=== PATIENT | male | born 1945 | race Caucasian/White ===

== ENCOUNTER → 2024-03-13 06:39 | Outpatient (REF) | payer MEDICARE, OTHER, SELFPAY ==
[2024-03-13 08:35] LABS: ALT (SGPT) 11 U/L (0-50); AST (SGOT) 19 U/L (17-59); Albumin 4.4 g/dl (3.5-5.0); Alkaline Phosphatase 66 U/L (38-126); Blood Urea Nitrogen 18 mg/dl (9-20); Calcium 9.7 mg/dl (8.4-10.2); Carbon Dioxide 31 mmol/L (22-30); Chloride 103 mmol/L (98-107); Glucose 95 mg/dl (70-99); HDL Cholesterol 79 mg/dl; LDL Cholesterol, Calculated 77 mg/dl; Potassium 4.4 mmol/L (3.5-5.1); Sodium 140 mmol/L (135-145); Total Bilirubin 0.4 mg/dl (0.2-1.3); Total Cholesterol 177 mg/dl (50-199); Total Protein 7.5 g/dl (6.3-8.2); Triglyceride 107 mg/dl (10-149); Very Low Density Lipoprotein 21 mg/dl (0-30); eGFR > 60.00
== END ==
LOC: REG 06:39
PROVIDERS: ATTENDING PHYSICIAN Internal Medicine Cardiovascular Disease; FAMILY PHYSICIAN Physical Medicine & Rehabilitation
DX: E78.2 Mixed hyperlipidemia (principal)
CPT/HCPCS: 36415; 80053; 80061

== ENCOUNTER 2024-10-02 06:35 | Inpatient (IN) | payer MEDICARE, OTHER, SELFPAY ==
--- NOTE | 2024-09-15 13:36 | CM ---
CM reviewed medical records. CM reviewed medical records. CM spoke with patient via phone. Patient confirmed demographics. Patient lives independently alone in a second floor apartment with elevator access. Patient stated that he does not have
family close by, but would rely on his neighbors to drive him back and forth. CM advised that patient can take an uber TO the procedure, but he would have to make arrangements to have someone pick him up from surgery. Patient understood and stated
that he would make arrangements for that.
Patient asked about SNF. Cm advised that SNF is rarely advisable if PT cleared him for home. Patient stated he understood, but would be agreeable to home PT due to inability to drive and have no support. CM encouraged patient to make arrangements
for outpatient PT once cleared for driving.
Patient is active with his PCP. Patient has medication coverage.
CM discussed required DME and referred patient to his education packet from [facility]. CM counseled patient to review required DME and encouraged questions.
CM will remain available.
[2024-09-27 13:29] VITALS: BMI 29.8
[2024-09-27 13:36] LABS: Hematocrit 38.1 % (39.0-52.0); Hemoglobin 11.9 g/dL (13.0-18.0); Mean Corp Hgb Conc. 31.2 g/dL (33.0-37.0); Mean Corpuscular Volume 86.6 fL (80.0-94.0); Platelet Count 219 10^3/uL (130-400); Red Cell Dist. Width 13.1 % (11.5-14.5)
[2024-09-27 13:59] LABS: ALT (SGPT) 13 U/L (0-50); AST (SGOT) 21 U/L (17-59); Albumin 4.4 g/dl (3.5-5.0); Alkaline Phosphatase 69 U/L (38-126); Blood Urea Nitrogen 15 mg/dl (9-20); Calcium 9.4 mg/dl (8.4-10.2); Carbon Dioxide 24 mmol/L (22-30); Chloride 107 mmol/L (98-107); Estimated Creatinine Clearance 76 ml/min; Glucose 90 mg/dl (70-99); Potassium 4.4 mmol/L (3.5-5.1); Sodium 139 mmol/L (135-145); Total Protein 7.3 g/dl (6.3-8.2); eGFR > 60.00
[2024-09-27 14:21] VITALS: BMI 29.8
[2024-09-28 09:20] LABS: Iron 62 ug/dl (49-181)
[2024-09-28 09:29] LABS: Total Iron Binding Capacity 320 ug/dl (261-462)
[2024-09-28 10:34] LABS: Glycohemoglobin (HgbA1c) 5.5 % (4.0-5.6)
[2024-09-28 12:25] LABS: Ferritin 24.6 ng/ml (17.9-464.0)
[2024-09-28 12:56] LABS: Folate 13.3 ng/ml (2.76-20)
[2024-09-28 13:55] LABS: Vitamin B12 824 pg/ml (239-931)
[2024-10-02] VITALS (16 sets, daily range): BP systolic 97–158; BP diastolic 56–84; PULSE 67–72; O2SAT 97
[2024-10-02] MEDS: BACTROBAN NASAL 1 GRAM NASAL (07:20)
[2024-10-02] MEDS: MOBIC 15 MG PO (07:22)
[2024-10-02] MEDS: NORMOSOL-R/PLASMALYTE-A 1000 IV ×2 (07:27→12:00)
[2024-10-02] MEDS: BENADRYL 25 MG IV ×2 (07:30→17:49)
[2024-10-02] MEDS: VANCOCIN 530 MG IV (07:32)
--- NOTE | 2024-10-02 07:58 | W.PN.ORTHO ---
Today's Communication / Plan
-
d/c when stable
Assessment
.
Dressing:
Clean, dry and intact.
Assessment:
hx p/o respiratory cwaklta-xtyxkwv-sraxypf sats on supplemental O2-IV Decadron-incentive spirometry
Dysphagia-aspiration precautions-mechanical soft diet -avoid lung infiltrate
Anemia-mild low grade TUSHAR-IV iron to enhance blood cell production-monitor hgb
Pain control-[place] w/ multimodal pain approach-minimize opioid to avoid respiratory suppression
HFpEF-monitor volume status-decrease IV fluid rate
Orthostasis-Midodrine w/ rybfrgcsu-XIMd-wybecaqz opioid
MRSA-IV Vanco-Mupirocin bid x 21d
Plan
.
Surgery / Date: R ELEANOR Jacob 10/02/24
DVT Prophylaxis: Aspirin
Activity:
Out of bed.
PT/OT
Discharge Plan: Home w/ VN
Subjective
.
.:
.
Vital Signs and Labs
.
Vital Signs and Labs:
Lab Results
09/27/24 11:01
09/27/24 11:01
Temp Pulse Resp BP Pulse Ox
97.6 F 92 16 158/84 98
10/02/24 06:50 10/02/24 06:50 10/02/24 06:50 10/02/24 06:50 10/02/24 06:50
--- NOTE | 2024-10-02 08:42 | W.DS.TRANS ---
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
-
Discharge Instructions:
Sleep Apnea Risk Low
Discharge Diagnosis/Procedures R ELEANOR Dr. Hunt 10/02/24
Diet As tolerated,Chop all food
Activity With Walker
Driving Restrictions No driving
Bathing Restrictions OK to Shower
Other Services VN,PT,OT
Instructions:
Stand-Alone Forms: Total Hip/Knee Replacement D/C
Changes to Home Medications: Yes
Discharge Medications:
DC Medications w/original date entered in [employer]
Boswellia jake-turmeric xt 1 cap PO DAILY 09/26/24
Held on 10/02/24. Instructions: Resume on 10/10/24.
budesonide 160 mcg-glycopyr 9 mcg-formot 4.8 mcg/actuation HFA inhaler (Breztri Aerosphere) 2 inh inhalation QAM AND QPM 09/26/24
magnesium glycinate 2 - 4 tab PO HS 09/26/24
rosuvastatin 20 mg tablet 20 mg PO HS 09/26/24
Lions Chidi 1 cap PO DAILY 09/27/24
Held on 10/02/24. Instructions: Resume on 10/10/24.
Turmeric Curcumin 1 cap PO DAILY 09/27/24
Held on 10/02/24. Instructions: Resume on 10/10/24.
apple cider vinegar 1 gum PO BID 09/27/24
ashwagandha root extract 1 cap PO DAILY 09/27/24
Held on 10/02/24. Instructions: Resume on 10/10/24.
devil's claw 1 cap PO DAILY 09/27/24
Held on 10/02/24. Instructions: Resume on 10/10/24.
melatonin 12 mg tablet 12 mg PO HS 09/27/24
dexamethasone 4 mg tablet 4 mg PO BID Anti-inflammatory #5 tabs 09/28/24
famotidine 20 mg tablet (Pepcid) 20 mg PO HS #30 tabs 09/28/24
gabapentin 300 mg capsule 300 mg PO HS neuropathic pain/sleep #10 caps 09/28/24
hydrocodone 5 mg-acetaminophen 325 mg tablet 1 - 2 tab PO Q6H PRN moderate-severe pain #30 tabs 09/28/24
mupirocin 2 % topical ointment 1 applic intranasal BID #1 tube 09/28/24
ondansetron HCl 4 mg tablet 4 mg PO Q6H PRN nausea and vomiting #30 tabs 09/28/24
acetaminophen 325 mg tablet (Tylenol) 650 mg (2 x 325 mg) PO QID #0 tabs 10/02/24
aspirin 325 mg tablet 325 mg PO DAILY blood clot prevention #1 tab 10/02/24
docusate sodium 100 mg capsule (Colace) 100 mg PO BID stool softner #1 cap 10/02/24
magnesium hydroxide 400 mg/5 mL oral suspension (Milk of Magnesia) 30 ml PO HS PRN constipation #1 mL 10/02/24
sennosides 8.6 mg tablet (Senokot) 17.2 mg (2 x 8.6 mg) PO BID laxative #2 tabs 10/02/24
Home Medication Changes
dexamethasone 4 mg tablet 4 mg PO BID Anti-inflammatory #5 tabs 09/28/24
famotidine 20 mg tablet (Pepcid) 20 mg PO HS #30 tabs 09/28/24
gabapentin 300 mg capsule 300 mg PO HS neuropathic pain/sleep #10 caps 09/28/24
hydrocodone 5 mg-acetaminophen 325 mg tablet 1 - 2 tab PO Q6H PRN moderate-severe pain #30 tabs 09/28/24
mupirocin 2 % topical ointment 1 applic intranasal BID #1 tube 09/28/24
ondansetron HCl 4 mg tablet 4 mg PO Q6H PRN nausea and vomiting #30 tabs 09/28/24
acetaminophen 325 mg tablet (Tylenol) 650 mg (2 x 325 mg) PO QID #0 tabs 10/02/24
aspirin 325 mg tablet 325 mg PO DAILY blood clot prevention #1 tab 10/02/24
docusate sodium 100 mg capsule (Colace) 100 mg PO BID stool softner #1 cap 10/02/24
magnesium hydroxide 400 mg/5 mL oral suspension (Milk of Magnesia) 30 ml PO HS PRN constipation #1 mL 10/02/24
sennosides 8.6 mg tablet (Senokot) 17.2 mg (2 x 8.6 mg) PO BID laxative #2 tabs 10/02/24
Pending Results: No
[2024-10-02] MEDS: NORCO 5/325 1 TABLET PO ×2 (10:57→17:18)
[2024-10-02] MEDS: TYLENOL 650 MG PO ×3 (12:01→20:20)
[2024-10-02] MEDS: ANCEF 5 IV ×2 (15:30→22:40)
[2024-10-02] MEDS: FERRLECIT 110 MG IV (15:30)
[2024-10-02] MEDS: DECADRON 4 MG IV ×2 (17:17→21:29)
[2024-10-02] MEDS: ASPIRIN 325 MG PO (17:50)
[2024-10-02] MEDS: BACTROBAN 2% OINTMENT 1 APPLIC NASAL (20:18)
[2024-10-02] MEDS: SENOKOT PO (20:18)
[2024-10-02] MEDS: COLACE PO (20:18)
[2024-10-02] MEDS: VANCOCIN 200 IV (20:19)
[2024-10-02] MEDS: TORADOL 15 MG IV (20:19)
[2024-10-02] MEDS: CRESTOR 20 MG PO (20:20)
[2024-10-02] MEDS: SYMBICORT 160/4.5 MCG INHALER 2 PUFF INH (20:31)
[2024-10-02] MEDS: MELATONIN 10 MG PO (21:29)
[2024-10-02] MEDS: PROTONIX 40 MG PO (21:29)
[2024-10-02] MEDS: NEURONTIN 300 MG PO (21:29)
[2024-10-03] MEDS: TYLENOL PO ×2 (00:23→12:28)
[2024-10-03 03:05] VITALS: BP 111/42
[2024-10-03] MEDS: TYLENOL 325 MG PO (03:10)
[2024-10-03 06:00] VITALS: BMI 30.5
[2024-10-03] MEDS: SYMBICORT 160/4.5 MCG INHALER 2 PUFF INH (07:29)
[2024-10-03] MEDS: SPIRIVA RESPIMAT 2.5 MCG 2 PUFF INH (07:30)
[2024-10-03 07:45] VITALS: BP 132/78
[2024-10-03] MEDS: COLACE 100 MG PO (08:06)
[2024-10-03] MEDS: TYLENOL 650 MG PO (08:07)
[2024-10-03] MEDS: SENOKOT 17.2 MG PO (08:07)
[2024-10-03] MEDS: ASPIRIN 325 MG PO (08:07)
[2024-10-03] MEDS: BACTROBAN 2% OINTMENT 1 APPLIC NASAL (08:08)
[2024-10-03] MEDS: DECADRON 4 MG IV (08:08)
[2024-10-03] MEDS: TORADOL 15 MG IV (08:08)
--- NOTE | 2024-10-03 08:55 | CM ---
Addendum entered by Yumiko Bettencourt RN 10/03/24 09:30:
CM discussed IMM at length. Patient may appeal if discharged today, but will make this CM aware.
Addendum entered by Yumiko Bettencourt RN 10/03/24 09:03:
[facility] has accepted.
Original Note:
Cm met with patient in room. Patient is agreeable to [facility]. Referral sent via [facility]. Patient will have a friend provide transportation home.
PLAN: home with [facility]
--- NOTE | 2024-10-03 10:37 | W.PN.ORTHO ---
Today's Communication / Plan
-
d/c
Assessment
.
Distal Motor Intact: Yes
Dressing:
Clean, dry and intact.
Assessment:
hx p/o respiratory hzfwpsh-ncelyqx-rddpifo sats on supplemental O2-IV Decadron-incentive spirometry
Dysphagia-aspiration precautions-mechanical soft diet -avoid lung infiltrate
Anemia-mild low grade TUSHAR-IV iron to enhance blood cell production-hgb stable with no hemodynamic compromise
Pain control-[place] w/ multimodal pain approach-minimize opioid to avoid respiratory suppression
HFpEF-volume status stable -decreased IV fluid rate
Orthostasis-Midodrine w/ snszwiylm-NBFt-cihfrxqz opioid
MRSA-IV Vanco-Mupirocin bid x 21d
Plan
.
Surgery / Date: R ELEANOR Jacob 10/02/24
DVT Prophylaxis: Aspirin
Activity:
Out of bed.
PT/OT
Discharge Plan: Home w/ VN
Subjective
.
.:
Patient resting comfortably.
Vital Signs and Labs
.
Vital Signs and Labs:
Lab Results
09/27/24 11:01
09/27/24 11:01
Temp Pulse Resp BP Pulse Ox
98.7 F 66 18 141/59 97
10/03/24 07:45 10/03/24 08:08 10/03/24 07:45 10/03/24 08:08 10/03/24 07:45
Non-invasive Hgb result: 12
Physical Exam
-
HEENT: No pallor, cyanosis, or jaundice. Throat clear.
NECK: Supple. No JVD.
RESPIRATORY: Lungs clear to auscultation.
CVS: S1, S2 normal. RRR.� No murmur, rub or gallop.
ABDOMEN: Soft, non-tender. No distension. BS+/normal.
EXTREMITIES: strength equal, no calf pain with palpation
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 extrusion bender grossly intact
[2024-10-03 10:56] VITALS: BP 119/54; BP 129/53; PULSE 70
[2024-10-03 11:25] VITALS: BP 148/80
[2024-10-03 11:56] VITALS: BP 142/60; PULSE 70
== END 2024-10-03 13:17 | disposition home health service (06) | DRG 470 ==
LOC: 2 SOUTH 06:35
PROVIDERS: ADMITTING PHYSICIAN Specialist; FAMILY PHYSICIAN Family Medicine; REFERRING PHYSICIAN Internal Medicine Cardiovascular Disease
PROC: 0SR904A Replacement of Right Hip Joint with Ceramic on Polyethylene Synthetic Substitute, Uncemented, Open Approach (ICD-10-PCS; 2024-10-02)
DX: M16.11 Unilateral primary osteoarthritis, right hip (principal); I50.32 Chronic diastolic (congestive) heart failure; J82.83 Eosinophilic asthma; E78.5 Hyperlipidemia, unspecified; I11.0 Hypertensive heart disease with heart failure; I25.10 Atherosclerotic heart disease of native coronary artery without angina pectoris; I73.9 Peripheral vascular disease, unspecified; I95.1 Orthostatic hypotension; R13.10 Dysphagia, unspecified; D50.9 Iron deficiency anemia, unspecified; I71.40 Abdominal aortic aneurysm, without rupture, unspecified; G47.33 Obstructive sleep apnea (adult) (pediatric); K76.0 Fatty (change of) liver, not elsewhere classified; G62.9 Polyneuropathy, unspecified; G47.00 Insomnia, unspecified; F32.A Depression, unspecified; G25.0 Essential tremor; I49.3 Ventricular premature depolarization; Z96.652 Presence of left artificial knee joint; Z87.09 Personal history of other diseases of the respiratory system; Z86.14 Personal history of Methicillin resistant Staphylococcus aureus infection; I25.2 Old myocardial infarction; Z95.5 Presence of coronary angioplasty implant and graft; Z91.199 Patient's noncompliance with other medical treatment and regimen due to unspecified reason; Z86.73 Personal history of transient ischemic attack (TIA), and cerebral infarction without residual deficits; Z59.82 Transportation insecurity
CPT/HCPCS: 36415; 73502; 80053; 82607; 82728; 82746; 83036; 83540; 83550; 85027; 86850; 86900; 86901; 87070; 87147; 94640; 97110; 97116; 97162; 97166; 97530; 97535; C1713; C1776; J2916

== ENCOUNTER → 2024-11-01 10:27 | Outpatient (REF) | payer MEDICARE, OTHER, SELFPAY | LOC: RAD 10:27 | PROVIDERS: ATTENDING PHYSICIAN Specialist; FAMILY PHYSICIAN Family Medicine | DX: Z96.641 Presence of right artificial hip joint (principal); M79.661 Pain in right lower leg | CPT/HCPCS: 93971 ==